=== PATIENT | male | born 1985 | race African-American/Black ===

== ENCOUNTER 2024-04-05 11:21 | Emergency (ER) | payer OTHER ==
[~2024-04-05] VITALS: Ht 182.9 cm; Wt 79.4 kg
[2024-04-05 12:06] VITALS: O2SAT 97
[2024-04-05] MEDS ORDERED: LIDO700A15 TP (14:21)
[2024-04-05] MEDS ORDERED: CYCL5TAB MT (14:21)
[2024-04-05] MEDS: KETOROLAC 30MG/ML VIAL IM ONE (14:30)
[2024-04-05 15:41] VITALS: BP 125/89; PULSE 80; RESP 16; TEMP 98
== END 2024-04-05 16:30 | disposition home or self-care (01) ==
LOC: ER 11:21
DX: M62.830 Muscle spasm of back (principal); G89.29 Other chronic pain; M54.50 Low back pain, unspecified
CPT/HCPCS: 96372; 99283; J1885; Z7610

== ENCOUNTER 2024-04-11 09:30 | Inpatient (IN) | payer OTHER ==
[~2024-04-11] VITALS: Ht 182.9 cm; Wt 75.4 kg
[~2024-04-11 09:30] MED LIST: CYCL5TAB MT; LIDO700A15 TP
[2024-04-11] MEDS: DIPHENHYDRAMINE 50MG/ML VIAL IV ONE (10:05)
[2024-04-11] MEDS: METHYLPREDNISOLONE SOD SUCC 125MG/2ML (ACT-O-VIAL) IV ONE (10:05)
[2024-04-11] MEDS: FAMOTIDINE 20MG/2ML VIAL IV ONE (10:05)
[2024-04-11 10:14] LABS: BASOPHILS % 0.6 % (0.0-2.0); EOSINOPHILS % 0.8 % (0.0-5.0); HEMATOCRIT. 41.2 % (42.0-52.0); HEMOGLOBIN. 14.3 g/dL (14.0-18.0); LYMPHOCYTES % 13.7 % (20.0-50.0); MEAN CORPUSCULAR HEMOGLOBIN 31.8 pg (28.0-32.0); MEAN CORPUSCULAR HGB CONC 34.8 g/dL (31.0-37.0); MEAN CORPUSCULAR VOLUME 91.4 fL (80.0-94.0); MEAN PLATELET VOLUME 7.8 fl (7.4-10.4); MONOCYTES % 4.1 % (2.0-8.0); NEUTROPHILS % 80.8 % (40.0-76.0); PLATELET 339 x1000/uL (130-400); RED CELL DISTRIBUTION WIDTH 12.8 % (11.6-14.6)
[2024-04-11 11:03] LABS: CHLORIDE 99 mEq/L (98-107); POTASSIUM 3.7 mEq/L (3.5-5.1); SODIUM 133 mEq/L (136-145)
[2024-04-11 11:04] LABS: CARBON DIOXIDE 23 mEq/L (21-32)
[2024-04-11 11:05] LABS: CALCIUM 9.8 mg/dL (8.7-10.4)
[2024-04-11 11:09] LABS: GLUCOSE 108 mg/dL (70-105); UREA NITROGEN BLOOD 14 mg/dL (9-23)
[2024-04-11 11:16] LABS: TROPONIN I HIGH SENSITIVITY < 4 ng/L (3.0-53)
[2024-04-11] MEDS: ASPIRIN 81MG TABLET PO ONE (12:33)
[2024-04-11] MEDS ORDERED: ONDANSETRON HCL 4MG/2ML INJ IV PRN (17:15)
[2024-04-11] MEDS ORDERED: CLONIDINE 0.1MG TABLET PO PRN (17:15)
[2024-04-11] MEDS ORDERED: ACETAMINOPHEN 325MG TABLET PO PRN (17:15)
[2024-04-11 17:20] LABS: TROPONIN I HIGH SENSITIVITY < 4 ng/L (3.0-53)
[2024-04-11 17:40] VITALS: BP 107/68; PULSE 63; RESP 17; TEMP 97.8
[2024-04-11] MEDS: ENOXAPARIN 40MG/0.4ML SYR SUBCUT SCH (17:50)
[2024-04-11] MEDS: SODIUM CHLORIDE 0.9% 1,000 ML IV SCH (17:50)
[2024-04-11 18:15] VITALS: BP 107/66; PULSE 65; RESP 21; TEMP 98
[2024-04-11 20:00] VITALS: BP 115/67; PULSE 61; RESP 22; TEMP 97.5
[2024-04-11] MEDS: METHYLPREDNISOLONE SOD SUCC 40MG/ML (ACT-O-VIAL) IV SCH (21:30)
[2024-04-11] MEDS: FAMOTIDINE 20MG/2ML VIAL IV SCH (21:31)
[2024-04-11 23:55] LABS: CREATINE KINASE MB FRACTION < 0.5 ng/mL (0.5-3.6)
[2024-04-11 23:56] LABS: CREATINE KINASE 152 IU/L (46-171); TROPONIN I HIGH SENSITIVITY < 4 ng/L (3.0-53)
[2024-04-12] VITALS (8 sets, daily range): BP systolic 104–109; BP diastolic 59–92; PULSE 57–70; RESP 18–26; TEMP 97.6–98.3; O2SAT 99
[2024-04-12 07:33] LABS: HEMATOCRIT. 39.7 % (42.0-52.0); HEMOGLOBIN. 13.6 g/dL (14.0-18.0); MEAN CORPUSCULAR HEMOGLOBIN 32.1 pg (28.0-32.0); MEAN CORPUSCULAR HGB CONC 34.2 g/dL (31.0-37.0); MEAN CORPUSCULAR VOLUME 93.7 fL (80.0-94.0); PLATELET 355 x1000/uL (130-400); RED BLOOD CELL COUNT 4.24 mill/uL (4.7-6.1); RED CELL DISTRIBUTION WIDTH 13.1 % (11.6-14.6); WHITE BLOOD COUNT 15.5 x1000/uL (4.5-11.0)
[2024-04-12 07:46] LABS: CREATINE KINASE MB FRACTION 0.6 ng/mL (0.5-3.6)
[2024-04-12 07:47] LABS: CHLORIDE 105 mEq/L (98-107); POTASSIUM 4.5 mEq/L (3.5-5.1); SODIUM 137 mEq/L (136-145)
[2024-04-12 07:48] LABS: CALCIUM 9.5 mg/dL (8.7-10.4); CARBON DIOXIDE 26 mEq/L (21-32)
[2024-04-12 07:51] LABS: TROPONIN I HIGH SENSITIVITY < 4 ng/L (3.0-53)
[2024-04-12 07:52] LABS: CREATINE KINASE 125 IU/L (46-171)
[2024-04-12 07:53] LABS: CREATININE 0.8 mg/dL (0.6-1.3); DIFFERENTIAL COMMENT 1; GLUCOSE 146 mg/dL (70-105); UREA NITROGEN BLOOD 17 mg/dL (9-23)
[2024-04-12 08:56] LABS: PLATELET ESTIMATE NORMAL
[2024-04-12] MEDS: IPRATROPIUM/ALBUTEROL 0.5-3(2.5)MG/3ML NEB HHN SCH (12:26)
[2024-04-12 12:31] LABS: *AMPHETAMINES SCREEN URINE NEGATIVE (NEGATIVE); *BARBITURATES SCREEN URINE NEGATIVE (NEGATIVE); *BENZODIAZEPINES SCREEN URINE NEGATIVE (NEGATIVE); *COCAINE SCREEN URINE NEGATIVE (NEGATIVE); METHADONE URINE SCREEN NEGATIVE (NEGATIVE); OPIATES URINE SCREEN NEGATIVE (NEGATIVE); PHENCYCLIDINE URINE SCREEN NEGATIVE (NEGATIVE)
[2024-04-12 12:32] LABS: CANNABINOID URINE SCREEN NEGATIVE (NEGATIVE); ECSTASY MDMA SCREEN URINE NEGATIVE (NEGATIVE)
[2024-04-12] MEDS ORDERED: TRAM50TA3 MT (16:20)
[2024-04-12] MEDS ORDERED: MED4 MT (16:20)
== END 2024-04-12 18:19 | disposition home or self-care (01) | DRG 313 ==
LOC: ER 10:02 → 5WST 12:09 → EDBEDREQTM 12:18 → EDBEDREQ 12:18 → 3WST 16:10
PROVIDERS: ADMIT Internal Medicine; ATTEND Internal Medicine
DX: R07.89 Other chest pain (principal); T39.8X5A Adverse effect of other nonopioid analgesics and antipyretics, not elsewhere classified, initial encounter; G89.29 Other chronic pain; M54.9 Dorsalgia, unspecified; K21.9 Gastro-esophageal reflux disease without esophagitis; Y92.89 Other specified places as the place of occurrence of the external cause; Z87.891 Personal history of nicotine dependence
CPT/HCPCS: 36415; 71045; 80048; 80305; 82550; 82553; 83880; 84484; 85025; 93005; 93306; 93970; 94003; 99291; J1200; J1650; J2920; J2930; J3490; J7030